=== PATIENT | male | born 1980 | race Caucasian/White ===

== ENCOUNTER 2017-03-23 02:13 | Emergency (ER) | payer BC ==
[~2017-03-23] VITALS: Ht 175.3 cm; Wt 86.2 kg
[~2017-03-23 02:13] MED LIST: CLON0.5T3 PO; LORA-405 PO
--- OUTSIDE RECORDS SUMMARY | 2017-03-23 02:20 | XMS REPORT | Continuity of Care Document ---
Author Author [employer] Organization [facility] Address Unknown Phone Unavailable Care Team Providers Care Coning Machine Operator Name Role Phone [employer] Unavailable Unavailable Problems Medications Allergies, Adverse Reactions, Alerts Immunizations Results Vital Signs Encounters Location Location Details Encounter Type Encounter Number Reason For Visit Attending Provider ADM Date DC Date Status Source OUTPATIENT [id number] XIOMY MARIA 03/07/20172016 Active [facility] OUTPATIENT [id number] XIOMY MARIA 03/21/2017 Active [facility] O Active [facility] Procedures Plan of Care Social History Assessment and Plan Family History Value Date Source Advance Directives Order Name Results Value Date Source
--- OUTSIDE RECORDS SUMMARY | 2017-03-23 02:20 | XMS REPORT | Clinical Summary ---
Author Author [facility] Organization [facility] Address Unknown Phone Unavailable Care Team Providers Care Hand Lacer Name Role Phone PCP Unavailable Source Comments Some departments are not documenting in the electronic medical record. If you do not see the information that you expected, contact Release of Information in the Health Information Management department at [phone] for further assistance in locating additional records.[facility] Allergies Active Allergy Reactions Severity Noted Date Comments Loratadine SEE COMMENTS High 08/21/2015 causes extreme mouth sores Mold UNKNOWN Low 08/21/2015 Tree [place] UNKNOWN Low 08/21/2015 Current Medications Prescription Sig. Disp. Refills Start End Date Status Date cyanocobalamin (VITAMIN Take 1,000 mcg by mouth Active B-12) 1,000 mcg tablet daily. folic acid 400 mcg tablet Take 400 mcg by mouth Active daily. baclofen (LIORESAL) 10 mg TAKE 1 TABLET BY MOUTH 90 Tab 5 12/09/19 Active tablet THREE TIMES DAILY 17 brivaracetam (BRIVIACT) Take 1 tablet by mouth 60 tablet 5 03/07/20 Active 50 mg tablet twice daily. 17 divalproex (DEPAKOTE ER) TAKE 1 TABLET BY MOUTH 30 tablet 0 03/17/20 Active 500 mg ER tablet EVERY NIGHT AT 17 BEDTIME*TAKE WITH 250MG TO MAKE TOTAL DOSE 750MG* divalproex ER (DEPAKOTE Take 1 tablet by mouth at 30 tablet 0 Active ER) 250 mg ER tablet bedtime daily. To be 17 taken with 500mg to equal 750mg QHS. pyridoxine (vitamin B6) Take 100 mg by mouth 03/07/20 Discontin (VITAMIN B-6) 100 mg daily. 17 ued tablet divalproex (DEPAKOTE ER) TAKE 1 TABLET BY MOUTH 30 tablet 0 02/15/20 03/17/20 Discontin 500 mg ER tablet EVERY NIGHT AT 17 17 ued BEDTIME*TAKE WITH 250MG TO MAKE TOTAL DOSE 750MG* divalproex ER (DEPAKOTE Take 1 tablet by mouth at 30 tablet 0 03/17/20 Discontin ER) 250 mg ER tablet bedtime daily. To be 17 17 ued taken with 500mg to equal 750mg QHS. Active Problems No known active problems Encounters Date Type Specialty Care Team Description 03/22/2017 Documentation Theodora Walden 03/21/2017 Hospital Radiology Arpan Kaye MD Arrived Encounter 03/21/2017 Hospital Arpan Kaye MD Encounter Holland Santos 03/17/2017 Refill Neurology Tim Bermudez DO 03/14/2017 Telephone Neurology Arpan Kaye MD Prior Authorization (Briviact) 03/07/2017 Office Visit Neurology Arpan Kaye MD Ataxia ( Primary Dx);Idiopathic generalized epilepsy, intractable (HCC);Weakness 03/07/2017 Procedure Pass Radiology 02/25/2017 Refill Neurology Tim Bermudez DO 02/13/2017 Refill Neurology Tim Bermudez DO from Last 3 Months Family History Medical History Relation Name Comments Ataxia Father Heart Attack Father Seizures Father unclear diagnosis Hypertension Maternal Grandfather Stroke Maternal Grandfather Dementia Maternal Grandmother Hypertension Other Cancer Paternal Grandfather Parkinson's Paternal Grandmother Migraines Neg Hx Tremor Neg Hx Relation Name Status Comments Father Maternal Grandfather Maternal Grandmother Mother Alive Other Paternal Grandfather Paternal Grandmother Social History Tobacco Use Types Packs/Day Years Used Date Never Smoker Smokeless Tobacco: Never Used Alcohol Use Drinks/Week oz/Week Comments No Sex Assigned at Date Recorded Not on file Last Filed Vital Signs Vital Sign Reading Time Taken Blood Pressure 123/83 03/07/2017 12:06 PM CDT Pulse 87 03/07/2017 12:06 PM CDT Temperature 36.7 C (98 F) 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 No evidence of acute or recent infarct or intracranial mass. 2. Small area of encephalomalacia involving the inferior right gyrus rectus at the olfactory groove. 3. Minimal supratentorial white matter disease of uncertain etiology or clinical significance. Approved by Ken Herman M.D. on 03/21/2017 2:38 PM By my electronic signature, I attest that I have personally reviewed the images for this examination and formulated the interpretations and opinions expressed in this report Finalized by Jaspal Adam M.D. on 03/21/2017 5:27 PM. Dictated by Ken Herman M.D. on 03/21/2017 1:35 PM. 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 TECHNIQUE: Multiplanar and multisequence MR imaging of the whole brain was performed. This was done both before and after the administration of gadolinium contrast. Additional dedicated MR sequences were obtained of the skullbase before and after the administration of gadolinium contrast. COMPARISON: None FINDINGS: The skullbase marrow signal is normal.Meckel's caves, cavernous sinuses, clivus and petrous apices are normal in appearance. The suprasellar, prepontine and cerebellopontine and cerebellomedullary cisterns are patent. No signal abnormality or mass lesion is identified along the expected course of the visualized cranial nerves. The ventricles and subarachnoid spaces are normal in size and configuration. A few scattered subcortical and deep frontal lobe white matter punctate FLAIR hyperintensities consistent with minimal nonspecific white matter disease. Focal encephalomalacia and gliosis involving the inferior aspect of the right gyrus rectus at the olfactory groove. Brain parenchyma is otherwise normal in signal. There is no focal mass or mass effect. There is no area of abnormal contrast enhancement. The vascular flow-voids are unremarkable. Diffusion weighted imaging is not indicative of infarct. 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 TECHNIQUE: Multiplanar and multisequence MR imaging of the whole brain was performed. This was done both before and after the administration of gadolinium contrast. Additional dedicated MR sequences were obtained of the skullbase before and after the administration of gadolinium contrast. COMPARISON: None FINDINGS: The skullbase marrow signal is normal. Meckel's caves, cavernous sinuses, clivus and petrous apices are normal in appearance. The suprasellar, prepontine and cerebellopontine and cerebellomedullary cisterns are patent. No signal abnormality or mass lesion is identified along the expected course of the visualized cranial nerves. The ventricles and subarachnoid spaces are normal in size and configuration. A few scattered subcortical and deep frontal lobe white matter punctate FLAIR hyperintensities consistent with minimal nonspecific white matter disease. Focal encephalomalacia and gliosis involving the inferior aspect of the right gyrus rectus at the olfactory groove. Brain parenchyma is otherwise normal in signal. There is no focal mass or mass effect. There is no area of abnormal contrast enhancement. The vascular flow-voids are unremarkable. Diffusion weighted imaging is not indicative of infarct. IMPRESSION 1. No evidence of acute or recent infarct or intracranial mass. 2. Small area of encephalomalacia involving the inferior right gyrus rectus at the olfactory groove. 3. Minimal supratentorial white matter disease of uncertain etiology or clinical significance. Approved by Ken Herman M.D. on 03/21/2017 2:38 PM By my electronic signature, I attest that I have personally reviewed the images for this examination and formulated the interpretations and opinions expressed in this report Finalized by Jaspal Adam M.D. on 03/21/2017 5:27 PM. Dictated by Ken Herman M.D. on 03/21/2017 1:35 PM. from Last 3 Months
--- OUTSIDE RECORDS SUMMARY | 2017-03-23 02:21 | XMS REPORT | Encounter Summary ---
Author Author [facility] Organization [facility] Address Unknown Phone Unavailable Care Team Providers Care Mangle Operator Garments Name Role Phone PCP Unavailable Encounter Details Date Type Department Care Team Description 03/07/2017 Procedure Pass [facility] Radiology [address] [place] [address] Social History Tobacco Use Types Packs/Day Years Used Date Never Smoker Smokeless Tobacco: Never Used Alcohol Use Drinks/Week oz/Week Comments No Sex Assigned at Date Recorded Not on file as of this encounter Plan of Treatment Not on fileas of this encounter Visit Diagnoses Not on filein this encounter
--- OUTSIDE RECORDS SUMMARY | 2017-03-23 02:21 | XMS REPORT | Encounter Summary ---
Author Author [facility] Organization [facility] Address Unknown Phone Unavailable Care Team Providers Care Territory Sales Manager Medical Name Role Phone PCP Unavailable Reason for Visit * Pain Authorization Status Reason Specialty Diagnoses / Referred By Referred To Procedures Contact Contact New Request Diagnoses Jenny Kaye MD [address] EMG ORDER [address] [place] [address] Encounter Details Date Type Department Care Team Description 03/21/2017 Hospital [facility] EEG Arpan Kaye MD Encounter [address] [place] [address] [address] [place] [address] [phone] Social History Tobacco Use Types Packs/Day Years Used Date Never Smoker Smokeless Tobacco: Never Used Alcohol Use Drinks/Week oz/Week Comments No Sex Assigned at Date Recorded Not on file as of this encounter Progress Notes * Raymundo Hall - 03/21/2017 9:19 AM CDT EEG completed without complications. in this encounter Procedure Notes * Zoila Woodard MD - 03/21/2017 11:38 AM CDT Procedure(s): EEG AWAKE & ASLEEP Pre-Procedure Diagnose(s): Seizures (HCC) AWAKE AND ASLEEP EEG REPORT Date of service: 03/21/2017 Name: Hay Ferreirarogers Date of : 1980 Start: 8:23 End: 9:12 Reffering: Dr. Kaye PATIENT HISTORY: This is a 36 y.o. male with an unclear epilepsy type and progressive ataxia. His previous EEG would suggest an underlying generalized epilepsy Meds: Depacon, Briviact TECHNICAL: This EEG is performed in the awake and asleep states. The EEG is performed on a 32 channel digital recording device. The 10-20 international system of electrode placement is used with additional FT9 and FT10 electrodes. REPORT: BACKGROUND: The posterior dominant rhythm is 9 Hz. The heart rate is 68 bpm. SLEEP: As the patient enters drowsiness there is an attenuation of background rhythms. Stage II sleep is seen, vertex waves and sleep spindles were present Hyperventilation was performed and produced no changes. Photic stimulation was performed and triggered intermittent generalized polyspike and wave epileptiform discharges as well as bilateral photic driving. ABNORMALITIES: Epileptiform activity is seen, noted intermittent generalized, frontal predominant 3 HZ polyspike and wave epileptiform discharges with shifting side predominance IMPRESSION This abnormal EEG is indicative of idiopathic generalized epilepsy. No seizures are seen. Seen and discussed with Dr. Vance Woo MD Neurophysiology fellow, [facility] I have personally reviewed the study and formulated the above-mentioned opinions and interpretations in this study. 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
--- OUTSIDE RECORDS SUMMARY | 2017-03-23 02:21 | XMS REPORT | Continuity of Care Document ---
Author Author [facility] Organization [facility] Address Unknown Phone Unavailable Allergies Active Description Code Type Severity Reaction Onset Reported/Identified Relationship to Patient Clinical Status Yes TRAVST-D TRAVST-D Moderate ALLERGIES TO MO 12/31/2010 Medications Problems Date Dx Coded Attending Type Code Diagnosis Diagnosed By 11/07/2009 Ot 845.00 11/07/2009 Ot 959.7 11/07/2009 Ot E000.0 11/07/2009 Ot E030 11/07/2009 Ot E849.6 11/07/2009 Ot E927.0 12/31/2010 Ot 822.0 12/31/2010 Ot 959.7 12/31/2010 Ot E000.8 12/31/2010 Ot E849.0 12/31/2010 Ot E888.1 11/09/2014 Ot 719.46 11/09/2014 Ot V15.88 11/09/2014 REGINE SEALS, ARMAND A Ot 801.00 11/09/2014 REGINE SEALS, ARMAND A Ot 873.0 11/09/2014 REGINE SEALS, ARMAND A Ot E000.0 11/09/2014 REGINE SEALS, ARMAND A Ot E849.6 11/09/2014 REGINE SEALS, ARMAND A Ot E885.9 11/09/2014 REGINE SEALS, ARMAND A Ot V06.1 11/15/2014 TAURUS SEALS, ALYSON Aguero Ot V58.32 12/13/2015 CHELA MCKEON DO Ot G40.909 EPILEPSY, UNSP, NOT INTRACTABLE, WITHOUT 12/13/2015 CHELA MCKEON DO Ot S00.11XA CONTUSION OF RIGHT EYELID AND PERIOCULAR 12/13/2015 CHELA MCKEON DO Ot W18.09XA STRIKING AGAINST OTH OBJECT W SUBSEQUENT 12/13/2015 CHELA MCKEON DO Ot Y92.013 BEDROOM OF SINGLE-FAMILY (PRIVATE) HOUSE 12/13/2015 CHELA MCKEON DO Ot Y99.8 OTHER EXTERNAL CAUSE STATUS 12/15/2015 CHELA MCKEON DO Ot G40.909 EPILEPSY, UNSP, NOT INTRACTABLE, WITHOUT 12/15/2015 CHELA MCKEON DO Ot S00.11XA CONTUSION OF RIGHT EYELID AND PERIOCULAR 12/15/2015 CHELA MCKEON DO Ot W18.09XA STRIKING AGAINST OTH OBJECT W SUBSEQUENT 12/15/2015 CHELA MCKEON DO Ot Y92.013 BEDROOM OF SINGLE-FAMILY (PRIVATE) HOUSE 12/15/2015 CHELA MCKEON DO Ot Y99.8 OTHER EXTERNAL CAUSE STATUS Procedures Results Encounters ACCT No. Visit Date/Time Discharge Status Pt. Type Provider Facility Loc./Unit Complaint [id number] 12/13/2015 18:15:00 2015 20:13:00 DIS Emergency CHELA MCKEON DO [facility] ER [id number] 08/15/2015 08:03:00 2015 23:59:59 CLS Outpatient OTILIA SEALS, NITISH Ochoa [facility] RT [id number] 11/15/2014 11:03:00 2014 11:21:00 DIS Emergency ALYSON CONDON MD [facility] ER [id number] 11/09/2014 02:00:00 2014 03:20:00 DIS Emergency ARMAND WEINER MD [facility] ER [id number] 01/19/2012 09:08:00 Document Registration [id number] 12/31/2010 19:31:00 Document Registration [id number] 11/07/2009 03:56:00 Document Registration
--- OUTSIDE RECORDS SUMMARY | 2017-03-23 02:21 | XMS REPORT | Encounter Summary ---
Author Author [facility] Address Unknown Phone Unavailable Care Team Providers Care Sap Hana Developer Name Role Phone PCP Unavailable Reason for Visit * Reason Comments Prior Authorization B[facility]act Encounter Details Date Type Department Care Team Description 03/14/2017 Telephone [facility] Arpan Kaye MD Prior Authorization [facility] Neurology [address] [facility] (Briviact) [address] [place] [address] [place] [address] [phone] Social History Tobacco Use Types Packs/Day Years Used Date Never Smoker Smokeless Tobacco: Never Used Alcohol Use Drinks/Week oz/Week Comments No Sex Assigned at Date Recorded Not on file as of this encounter Miscellaneous Notes * Telephone Encounter - Tamiko Bartlett LPN - 03/22/2017 10:56 AM CDT Per patient's patient is not seizure-free on depakote. Briviact copay card will only reduce the cost by $100. Discussed with about patient assistance program through [facility]. Based on income provided in a 3-person household, patient should qualify for the program. Spoke with Theodora with medication assistance. She will start paperwork and contact patient. * Telephone Encounter - Tamiko Bartlett LPN - 03/18/2017 1:34 PM CDT Patient's states she spoke with their insurance company. They informed her that their copay for the briviact would be $1110. She states it is excluded completely from their plan. Dr. Kaye, does patient have any other medication options? * Telephone Encounter - Dunia Kim RN - 03/15/2017 8:46 AM CDT Called Darrell to confirm if a PA was needed, no Rx on file for Briviact. Completed PA on [employer]. Per for[MD[email or web address], "A Prior Authorization is not applicable for this patient/medication. No further PA action needed." Waiting for pt's to return MANUEL Morrison's call for more clarifying information. * Telephone Encounter - Tamiko Bartlett LPN - 03/15/2017 8:31 AM CDT Patient's LVM on 03/11 stating that patient's insurance will not cover the new medication Dr. Kaye prescribed at last appt- brivaracetam. She stated there was another medication option they were provided with that insurance would cover. Medication name was not understandable on message. Return voicemail left for patient's requesting more information. in this encounter Plan of Treatment Not on fileas of this encounter Visit Diagnoses Not on filein this encounter
--- OUTSIDE RECORDS SUMMARY | 2017-03-23 02:21 | XMS REPORT | Encounter Summary ---
Author Author [facility] Organization [facility] Address Unknown Phone Unavailable Care Team Providers Care House Cleaner Name Role Phone PCP Unavailable Encounter Details Date Type Department Care Team Description 03/22/2017 Documentation [facility] Theodora Walden [address] [facility] [place] [address] Social History Tobacco Use Types Packs/Day Years Used Date Never Smoker Smokeless Tobacco: Never Used Alcohol Use Drinks/Week oz/Week Comments No Sex Assigned at Date Recorded Not on file as of this encounter Progress Notes * Theodora Walden - 03/22/2017 12:21 PM CDT A Medication Assistance Packet was mailed out to this patient. Once completed and returned by the patient, assistance paperwork will be done and sent to the physician prescribing the medications. Theodora Walden Medication Watcher [facility] [phone] in this encounter Plan of Treatment Not on fileas of this encounter Visit Diagnoses Not on filein this encounter
--- OUTSIDE RECORDS SUMMARY | 2017-03-23 02:21 | XMS REPORT | Encounter Summary ---
Author Author [facility] Organization [facility] Address Unknown Phone Unavailable Care Team Providers Care Shoe Stamper Name Role Phone PCP Unavailable Reason for Visit * Reason Comments Medication Refill Encounter Details Date Type Department Care Team Description 03/17/2017 Refill [facility] Neu[facility] [address] [place] [address] [place] [address] [phone] Social History Tobacco Use Types Packs/Day Years Used Date Never Smoker Smokeless Tobacco: Never Used Alcohol Use Drinks/Week oz/Week Comments No Sex Assigned at Date Recorded Not on file as of this encounter Plan of Treatment Not on fileas of this encounter Visit Diagnoses Not on filein this encounter
--- OUTSIDE RECORDS SUMMARY | 2017-03-23 02:21 | XMS REPORT | Encounter Summary ---
Author Author [facility] Organization [facility] Address Unknown Phone Unavailable Care Team Providers Care Tan Room Supervisor Name Role Phone PCP Unavailable Reason for Referral * Radiology Services Status Reason Specialty Diagnoses / Referred By Referred To Procedures Contact Contact Authorized Radiology Diagnoses Mansi Kaye Mri Ataxia MD Arpan [address] [place] MRI [address] [address] [address] [place], [place] Phone: [phone] Phone: * Radiology Services Status Reason Specialty Diagnoses / Referred By Referred To Procedures Contact Contact Authorized Radiology Diagnoses Mansi Kaye Mri Ataxia MD Arpan [address] [place], [place] MRI [address] [address] [place] Phone: [phone] Phone: Reason for Visit * Radiology Services Status Reason Specialty Diagnoses / Referred By Referred To Procedures Contact Contact Authorized Radiology Diagnoses Mansi Kaye Mri Ataxia MD Arpan [address] [place], [place] MRI [address] [address] [address] Phone: [phone] Phone: Encounter Details Date Type Department Care Team Description 03/21/2017 Hospital [facility] Arpan Kaye MD Arrived Encounter [facility] Radiology [address] [facility] [address] [facility] [address] [place] [address] [place] [address] [phone] Social History Tobacco Use Types Packs/Day Years Used Date Never Smoker Smokeless Tobacco: Never Used Alcohol Use Drinks/Week oz/Week Comments No Sex Assigned at Date Recorded Not on file as of this encounter Plan of Treatment Not on fileas of this encounter Results * MRI HEAD WO CONTRAST (03/21/2017 [...] Ken Herman M.D. on 03/21/2017 1:35 PM. in this encounter Visit Diagnoses Diagnosis Ataxia Lack of coordination in this encounter
--- OUTSIDE RECORDS SUMMARY | 2017-03-23 02:21 | XMS REPORT | Encounter Summary ---
Author Author [facility] Organization [facility] Address Unknown Phone Unavailable Care Team Providers Care Administrative Library Assistant Name Role Phone PCP Unavailable Reason for Visit * Reason Comments Medication Refill Encounter Details Date Type Department Care Team Description 02/25/2017 Refill [facility] [address] [place] [address] [place] [address] [phone] Social History Tobacco Use Types Packs/Day Years Used Date Never Smoker Smokeless Tobacco: Never Used Alcohol Use Drinks/Week oz/Week Comments No Sex Assigned at Date Recorded Not on file as of this encounter Plan of Treatment Not on fileas of this encounter Visit Diagnoses Not on filein this encounter
--- OUTSIDE RECORDS SUMMARY | 2017-03-23 02:21 | XMS REPORT | Encounter Summary ---
Author Author [facility] Organization [facility] Address Unknown Phone Unavailable Care Team Providers Care Rolling Mill Operator Name Role Phone PCP Unavailable Reason for Visit * Reason Comments Medication Refill Encounter Details Date Type Department Care Team Description 02/13/2017 Refill [facility] Neurology [address] [place] [address] [place] [address] [phone] Social History Tobacco Use Types Packs/Day Years Used Date Never Smoker Smokeless Tobacco: Never Used Alcohol Use Drinks/Week oz/Week Comments No Sex Assigned at Date Recorded Not on file as of this encounter Plan of Treatment Not on fileas of this encounter Visit Diagnoses Not on filein this encounter
--- OUTSIDE RECORDS SUMMARY | 2017-03-23 02:21 | XMS REPORT | Encounter Summary ---
Author Author [facility] Organization [facility] Address Unknown Phone Unavailable Care Team Providers Care Analysis Engineer Name Role Phone PCP Unavailable Reason for Referral * Consult, Test & Treat Status Reason Specialty Diagnoses / Referred By Referred To Procedures Contact Contact New Request Specialty Neurology Diagnoses [facility] Services Idiopathic MD BRITTANIE Antony [id number] Required generalized [address] epilepsy, Blvd [place], [place] intractable [place] [id number] (HCC) [place], [place] Phone: [phone] Phone: * Radiology Services Status Reason Specialty Diagnoses / Referred By Referred To Procedures Contact Contact Authorized Radiology Diagnoses Mansi Kaye Mri Ataxia MD Arpan [address] [place] MRI HEAD [place] [id number] [address] [place], [place] Phone: [phone] Phone: * Pain Authorization Status Reason Specialty Diagnoses / Referred By Referred To Procedures Contact Contact New Request Diagnoses Jenny Kaye MD [address] rocedures [address]d EMG ORDER [place] [address] [place] [address] * Consult, Test & Treat Status Reason Specialty Diagnoses / Referred By Referred To Procedures Contact Contact No Auth Needed Specialty Neurology Diagnoses Taqueria Kaye [facility], Services Ataxia MD ARNEL Antony Required [address] [place], [place] [id number] [place], [place] Phone: [phone] Phone: Reason for Visit * Reason Comments Neurological Problem Delay in speech worsening, walking has improved Encounter Details Date Type Department Care Team Description 03/07/2017 Office Visit [facility] Arpan Kaye MD Ataxia ([facility] [address] Dx);Idiopathic [address] [place] [address] generalized epilepsy, [address] [place] [address] [place] [address] (HCC);Weakness [phone] Social History Tobacco Use Types Packs/Day Years Used Date Never Smoker Smokeless Tobacco: Never Used Alcohol Use Drinks/Week oz/Week Comments No Sex Assigned at Date Recorded Not on file as of this encounter Last Filed Vital Signs Vital Sign Reading Time Taken Blood Pressure 123/83 03/07/2017 12:06 PM CDT Pulse 87 03/07/2017 12:06 PM CDT Temperature - - Respiratory Rate - - Oxygen Saturation 100% 03/07/2017 12:06 PM CDT Inhaled Oxygen - - Concentration Weight 101.4 kg (223 lb 9.6 oz) 03/07/2017 12:06 PM CDT Height 182.9 cm (6' 0.01") 03/07/2017 12:06 PM CDT Body Mass Index 30.32 03/07/2017 12:06 PM CDT in this encounter Instructions * Patient Instructions - Arpan Kaye MD - 03/07/2017 12:30 PM CDT Brivaracetam titration schedule AM PM Weeks 1-2 0 50mg Week 3 50mg 50mg Divalproex titration schedule AM PM Week 4 0 500mg Week 5 0 250mg Week 6 0 0mg in this encounter Progress Notes * Dunia Kim, RN - 03/07/2017 12:30 PM CDT Discussed process with [facility] and potential financial responsibility. Also provided Brivact co-pay card and instructed pt to call if having any questions, issues, concerns with the medications. Verbalized understanding. * Arpan Kaye MD - 03/07/2017 12:30 PM CDT Formatting of this note may be different from the original. Subjective: History of Present Illness Hay Grossman is a 36 y.o. male. He is accompanied by his Donald. Of note, the history is difficult to obtain due to the patient and his having difficulty recalling information. History of present illness This all began in 2008. He can't tell me what a seizure is. He doesn't know if he has seizures. They tell me he can just fall. The first thing he notices when he falls is he gets scared. It happens when he bumps into something. He will then get startled and then he will fall. He cannot describe to me what this is like. His notices that his legs just give out. He just collapses. There is no clear pattern in the way that he does it. He doesn't try to catch himself. He can hit his head. He has lost consciousness from this before, but most often he doesn't. He just lays on the ground when he falls. He can roll over and then get himself up. He will then get up. Both of the legs, right>left can be weak. He then just continues what he is doing. He was placed on divalproex which has decreased the frequency of falls, but not made them go away. He has the falls on a weekly basis. Precipitating factors: Startle or being scared Previous AEDs: levetiracetam (lewis, but did work) Other history: I reviewed a note from Dr. Bermudez which is pertinent for initial evaluation for gait issues, falling, and weakness. She does note a MRI T spine which showed T11/12 degenerative changes. 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 He had been on levetiracetam previously with resolution of seizures, but worsening mood. She started divalproex after that. She did fill out disability forms for him. Of note, his father used to follow with Dr. Guevara. Epilepsy risk factors (including gestational/ history): The patient was the product of a normal spontaneous vaginal delivery of a full term . There is a history of three febrile seizures at 13 months due to an ear infection, but no clear [employer] infections. Development was normal and developmental milestones were up to par with age. He has fallen and hit his head 2-3 times with LOC. There are no other risk factors for epilepsy. PREVIOUS TESTS: 1. MRI brain (09/18/15) - mild white matter changes (report reviewed) 2. MRI c-spine (09/18/15) - C4/5 disc bulge without central canal stenosis ( report reviewed) 3. [facility] EEG (08/15/15) - 3-4 Hz spike and slow wave (report reviewed) 4. Labs (08/21/15) reviewed - normal SPEP, MMA, RPR, Lyme, MICHAEL, IFES, RF, SSA /SSB, HIV, PELON, A1c, and copper with mildly low B12 (359) Review of Systems The following systems were reviewed and were negative except as mentioned elsewhere: Constitutional: No fever/chills/sweat, weight loss, tiredness/fatigue, or poor appetite Eyes: No reduced vision or blurriness, double vision, or droopy eyelids ENT: No hearing loss, ringing in the ears, vertigo, or hoarseness Cardiovascular: No chest pain/angina or palpitations Respiratory: No shortness of breath or cough Gastrointestinal: No abdominal pain, nausea and/or vomiting, diarrhea, or constipation Genitourinary: No pain with urination, excessive urination, or incontinence Musculoskeletal: No back pain, neck pain, joint pain/redness/swelling, or myalgia Skin: No jaundice, rash, or change in sweating Hematologic/ Lymphatic: No anemia, easy bruising, bleeding, or enlarged lymph nodes Endocrine: No temperature intolerance, polyuria, or polydipsia Allergic/ Immunological: No severe allergic reaction Psychiatric: No depression or anxiety Objective: baclofen (LIORESAL) 10 mg tablet TAKE 1 TABLET BY MOUTH THREE TIMES DAILY cyanocobalamin (VITAMIN B-12) 1,000 mcg tablet Take 1,000 mcg by mouth daily. divalproex (DEPAKOTE ER) 500 mg ER tablet TAKE 1 TABLET BY MOUTH EVERY NIGHT AT BEDTIME*TAKE WITH 250MG TO MAKE TOTAL DOSE 750MG* divalproex ER (DEPAKOTE ER) 250 mg ER tablet Take 1 tablet by mouth at bedtime daily. To be taken with 500mg to equal 750mg QHS. folic acid 400 mcg tablet Take 400 mcg by mouth daily. pyridoxine (vitamin B6) (VITAMIN B-6) 100 mg tablet Take 100 mg by mouth daily. Vitals: 03/07/17 1206 BP: 123/83 Pulse: 87 SpO2: 100% Weight: 101.4 kg (223 lb 9.6 oz) Height: 182.9 cm (72.01") Body mass index is 30.32 kg/(m^2). Physical Exam The patient is pleasant and cooperative with the exam. He is not in acute distress. The head is normocephalic without evidence of previous trauma. He does have a male pattern bald spot that started in middle school. Oropharynx is clear. Lungs are clear to auscultation bilaterally. Cardiac exam reveals a regular rate and rhythm. Abdomen is soft with active bowel sounds. Pulses are preserved in all four extremities. Skin exhibits normal temperature and showed no rash. His 5th digits are short and curved bilaterally. Mental Status: The patient is attentive, alert, and oriented to person, time and place. Language comprehension, naming, concentration, and recent/remote memory are intact. Speech is fluent, but does have some stuttering. Cranial Nerves: Pupils are equal and reactive to light bilaterally. Visual mercado are intact to confrontation testing. There is no papilledema. Extraocular movements that are probably intact without nystagmus, although he doesn't seem to bury his eyes with lateral eye movement. Facial sensation and strength are normal. Hearing is intact to finger rub. Tongue and uvular are in the midline. Shoulder shrug is normal bilaterally. Motor: Muscle bulk is normal. There is normal tone. Motor power is as follows: Left Right Deltoids 5 5 Biceps 5 5 Triceps 5 5 Wrist extensors 5 5 Nitriles Lab Technician 5 5 Iliopsoas 5- 5- Quads 5 5 Hamstrings 5 5 Gastrocnemius 5 5 Tibialis anterior 5 5 There is no pronator drift or fixation. Tendon reflexes are 2+ diffusely except for 3+ with the left brachioradialis and in the bilateral patella with crossed adductors. Babinski maneuver elicits extensor response bilaterally. Sensory: Sensation is intact to pinprick, vibration, and light touch. Cerebellar: Finger to nose test shows no dysmetria. Rapid alternating movements are normal. Romberg is normal. Pull test was notable for an almost fall, but he was able to grab the door jam and I held him up as well. There is no abnormal movement. Gait: Normal stance, arms out for balance, and decreased stride length. Patient is able to heel, but not toe or andem walk. No gross ataxia is noted, but he does seem unstable. Assessment and Plan: CLINICAL SUMMARY Mr. Grossman is a pleasant 36 year old man with an unclear epilepsy type and progressive ataxia. His previous EEG would suggest an underlying generalized epilepsy, but there is essentially no clinical history obtained today as neither of them can provide an accurate description of any potential seizures. The associated ataxia, upper motor neuron signs, early male pattern baldness, perhaps unusual bilateral 5th digits, and his father with a similar unclear diagnosis does raise the possibility of a genetic etiology. I would like him to see one of our movement disorder people for guidance as to genetic testing. Since it seems to possibly through his father, mitochondrial seems less likely. He would likely benefit from gait training so I would order this, but he would like to defer due to cost. I will also send for a new MRI. As for his undefined epilepsy, I will send for an EEG to characterize his brain waves. Since he was free of these with levetiracetam, I will trial brivaracetam. Once on a dose of 50mg 2x daily, I will taper off the divalproex by 250mg per week. EPILEPSY CLASSIFICATION Epileptogenic zone: Generalized Epileptic Seizures: Myoclonic seizure (?) or atonic seizure (?) Etiology: Unknown Related Medical Conditions: Father with unknown epilepsy and progressive gait disorder MANAGEMENT AND PLAN During the visit I discussed my impression, recommended diagnostic studies, prognosis, risks and benefits of management, instructions for management, and importance of compliance. After a discussion, the patient agrees with the plan. Total time for discussion was 70 minutes. I spent 60 minutes counseling the patient on matters pertaining to unknown epilepsy and progressive gait disorder. Visit start time: 12:10 Visit end time: 13:30 RECOMMENDATIONS 1. Movement disorders consultation to help guide genetic testing 2. EMG on the same day with Dr. Fritz 3. MRI brain 4. One hour EEG 5. Consider gait training in the future The patient is instructed not to drive unless 6 months free of alteration of consciousness, not to work in close proximity of machines with moving parts, not to swim unsupervised or to work at high places. The patient is to shower ( without accumulation of water) instead of taking a bath if unsupervised. FOCUSED HEALTH MAINTENANCE: Smoking cessation counseling: Non-smoker Discussed patient's BMI with him. The body mass index is 30.32 kg/(m^2). and falls within the category of Obesity 1 (30 to <35); Specialist visit only - will refer back to primary doctor for further care. FOLLOWUP PLAN I plan to see the patient back for follow-up in approximately 6 months. The patient is instructed to contact us if there is an exacerbation of the seizures or any side effects from the antiepileptic medications. in this encounter Plan of Treatment Name Priority Associated Diagnoses Order Schedule AMB REFERRAL TO NEUROLOGY Routine Ataxia Ordered: 03/07/2017 AMB REFERRAL FOR EEG Routine Idiopathic generalized Ordered: 03/07/2017 epilepsy, intractable (HCC) as of this encounter Results * MRI HEAD [...] in this encounter Visit Diagnoses Diagnosis Ataxia - Primary Lack of coordination Idiopathic generalized epilepsy, intractable (HCC) Unspecified epilepsy with intractable epilepsy Weakness Other malaise and fatigue in this encounter
[2017-03-23 02:31] VITALS: BP 128/88
--- NOTE | 2017-03-23 02:41 | ED Chest Pain ---
General Chief Complaint: Chest Pain Stated Complaint: CP,LOWER BACK PAIN Source: patient, family (mom) Exam Limitations: no limitations History of Present Illness Time seen by provider: 02:26 Initial Comments Patient presents to ER by private conveyance with his mother with a chief complaint that at approximately 0 140 this morning he was at work at [employer] and began to feel some sweats come on as well as feel a little lightheaded and a coworker said that he looked pale. He then began to experience some soreness in his chest that has gotten better since arriving at the ER. He has no cough or shortness of breath nor nausea, or numbness or tingling of his hands, arms, jaw, neck. He has no diarrhea, rash, fever, chills. About a week ago he was diagnosed with a spider bite on his right flank for which she was put on a steroid and doxycycline. He finished the steroid couple days ago. He feels that this is gotten a lot better and it does not hurt anymore. His primary care physician did not sophie the wound. He has no history of coronary disease, primary family coronary disease prior to age of 50, diabetes, blood pressure, thyroidism, smoking history. Allergies and Home Medications Allergies Uncoded Allergies: TRAVST-D (Allergy, Intermediate, ALLERGIES TO MOUTH, 12/31/10) Home Medications Lorazepam 1 Mg Tablet, 1 MG PO PRN, #10 Prescribed by: CHELA MCKEON on 12/13/151930 Review of Systems Constitutional: No chills, No diaphoresis, No fever, No malaise EENTM: No Blurred Vision, No Eye Pain Respiratory: Denies Cough, Denies Shortness of Air Cardiovascular: See HPI, Chest Pain (mid sternum), Denies Edema, Denies Irregular Heart Rate, Denies Lightheadedness, Denies Palpitations, Denies Syncope Gastrointestinal: Denies Abdomen Distended, Denies Abdominal Pain, Denies Constipated, Denies Diarrhea, Denies Nausea, Denies Poor Appetite, Denies Vomiting Genitourinary: Denies Burning, Denies Discharge Musculoskeletal: No back pain, No joint pain Skin: No pruritus, No rash Psychiatric/Neurological: Denies Headache, Denies Numbness Past Rgjemeb-Glavfi-Qhvoac Hx Patient Social History Alcohol Use: Denies Use Recreational Drug Use: No Smoking Status: Never a Smoker Recent Foreign Travel: No Contact w/Someone Who Travel: No Immunizations Up To Date Tetanus Booster (TDap): Less than 5yrs Seasonal Allergies Seasonal Allergies: No Surgeries Surgeries: Orthopedic Neurological Neurological Disorders: Seizure Disorder Blood Transfusions Adverse Reaction to a Blood Tr: No Physical Exam Vital Signs Vital Sign - Last 12Hours 03/23/17 02:18 Temp 97.8 Pulse 79 Resp 20 B/P (MAP) 130/89 Pulse Ox 94 O2 Delivery Room Air Capillary Refill : General Appearance: No Apparent Distress, WD/WN, Anxious HEENT: PERRL/EOMI, TMs Normal, Normal ENT Inspection, Pharynx Normal Neck: Full Range of Motion, Normal Inspection, Non Tender, Supple, Lymphadenopathy (L) (shotty anterior), Lymphadenopathy (R) (shotty) Respiratory: Chest Non Tender, Lungs Clear, Normal Breath Sounds, No Accessory Muscle Use, No Respiratory Distress Cardiovascular: Regular Rate, Rhythm, No Edema, No Gallop, No JVD, No Murmur, Normal Peripheral Pulses Gastrointestinal: Normal Bowel Sounds, No Organomegaly, No Pulsatile Mass, Non Tender, Soft Extremity: Normal Capillary Refill, No Pedal Edema Neurologic/Psychiatric: Alert, Oriented x3, Normal Mood/Affect Skin: Normal Color, Warm/Dry Lymphatic: No Adenopathy Progress/Results/Core Measures Results/Orders Lab Results Laboratory Tests Test 03/23/17 02:27 03/23/17 02:40 Range/Units White Blood Count 8.4 4.3-11.0 10^3/uL Red Blood Count 5.15 4.35-5.85 10^6/uL Hemoglobin 16.1 13.3-17.7 G/DL Hematocrit 47 40-54 % Mean Corpuscular Volume 92 80-99 FL Mean Corpuscular Hemoglobin 31 25-34 PG Mean Corpuscular Hemoglobin Concent 34 32-36 G/DL Red Cell Distribution Width 13.0 10.0-14.5 % Platelet Count 216 130-400 10^3/uL Mean Platelet Volume 11.0 H 7.4-10.4 FL Neutrophils (%) (Auto) 38 L 42-75 % Lymphocytes (%) (Auto) 49 H 12-44 % Monocytes (%) (Auto) 10 0-12 % Eosinophils (%) (Auto) 2 0-10 % Basophils (%) (Auto) 1 0-10 % Neutrophils # (Auto) 3.2 1.8-7.8 X 10^3 Lymphocytes # (Auto) 4.1 H 1.0-4.0 X 10^3 Monocytes # (Auto) 0.8 0.0-1.0 X 10^3 Eosinophils # (Auto) 0.2 0.0-0.3 10^3/uL Basophils # (Auto) 0.1 0.0-0.1 10^3/uL Sodium Level 141 135-145 MMOL/L Potassium Level 3.6 3.6-5.0 MMOL/L Chloride Level 102 98-107 MMOL/L Carbon Dioxide Level 27 21-32 MMOL/L Anion Gap 12 5-14 MMOL/L Blood Urea Nitrogen 18 7-18 MG/DL Creatinine 1.07 0.60-1.30 MG/DL Estimat Glomerular Filtration Rate > 60 BUN/Creatinine Ratio 17 Glucose Level 89 70-105 MG/DL Calcium Level 8.8 8.5-10.1 MG/DL Magnesium Level 2.2 1.8-2.4 MG/DL Total Bilirubin 0.8 0.1-1.0 MG/DL Aspartate Amino Transf (AST/SGOT) 37 H 5-34 U/L Alanine Aminotransferase (ALT/SGPT) 49 0-55 U/L Alkaline Phosphatase 51 40-136 U/L Troponin I < 0.30 <0.30 NG/ML C-Reactive Protein High Sensitivity 0.05 0.00-0.50 MG/DL Total Protein 7.2 6.4-8.2 GM/DL Albumin 3.8 3.2-4.5 GM/DL Urine Color YELLOW Urine Clarity CLEAR Urine pH 6 5-9 Urine Specific Stickney 1.020 1.016-1.022 Urine Protein NEGATIVE NEGATIVE Urine Glucose (UA) NEGATIVE NEGATIVE Urine Ketones NEGATIVE NEGATIVE Urine Nitrite NEGATIVE NEGATIVE Urine Bilirubin NEGATIVE NEGATIVE Urine Urobilinogen NORMAL NORMAL MG/DL Urine Leukocyte Esterase NEGATIVE NEGATIVE Urine RBC (Auto) NEGATIVE NEGATIVE Urine RBC NONE /HPF Urine WBC NONE /HPF Urine Squamous Epithelial Cells RARE /HPF Urine Crystals NONE /LPF Urine Bacteria NEGATIVE /HPF Urine Casts NONE /LPF Urine Mucus NEGATIVE /LPF Urine Culture Indicated NO Urine Opiates Screen NEGATIVE NEGATIVE Urine Oxycodone Screen NEGATIVE NEGATIVE Urine Methadone Screen NEGATIVE NEGATIVE Urine Propoxyphene Screen NEGATIVE NEGATIVE Urine Barbiturates Screen NEGATIVE NEGATIVE Ur Tricyclic Antidepressants Screen NEGATIVE NEGATIVE Urine Phencyclidine Screen NEGATIVE NEGATIVE Urine Amphetamines Screen NEGATIVE NEGATIVE Urine Methamphetamines Screen NEGATIVE NEGATIVE Urine Benzodiazepines Screen NEGATIVE NEGATIVE Urine Cocaine Screen NEGATIVE NEGATIVE Urine Cannabinoids Screen NEGATIVE NEGATIVE My Orders Orders - BIPIN SNOWDEN Cbc With Automated Diff (03/23/17 02:32) Comprehensive Metabolic Panel (03/23/17 02:32) Hs C Reactive Protein (03/23/17 02:32) Drug Screen Stat (Urine) (03/23/17 02:32) Magnesium (03/23/17 02:32) Troponin I (03/23/17 02:32) Ua Culture If Indicated (03/23/17 02:32) Chest Pa/Lat (2 View) (03/23/17 02:32) Ekg Tracing (03/23/17 02:32) Saline Lock/Iv-Start (03/23/17 02:32) Aspirin Chewable Tablet (Baby Aspirin Ch (03/23/17 02:45) Medications Given in ED Current Medications Medications Dose Ordered Sig/Emeli Route Start Time Stop Time Status Last Admin Dose Admin Aspirin 324 mg ONCE ONCE PO 03/23/17 02:45 03/23/17 02:46 DC 03/23/17 02:44 324 MG Vital Signs/I&O Vital Sign - Last 12Hours 03/23/17 03/23/17 02:18 02:18 Temp 97.8 Pulse 79 Resp 20 B/P (MAP) 130/89 Pulse Ox 94 O2 Delivery Room Air Room Air ECG Initial ECG Impression Date: Mar 23, 2017 Initial ECG Impression Time: 02:20 Initial ECG Rate: 72 Initial ECG Rhythm: Normal Sinus Initial ECG Intervals: NV (216 ms) Initial ECG Impression: Normal, 1st Degree AV Block Initial ECG Comparisson: No Previous ECG Available Comment No T-wave elevation or depression. Diagnostic Imaging Diagonstic Imaging: Xray Plain Films/CT/US/NM/MRI: chest Comments No acute cardiopulmonary process noted. Reviewed: Reviewed by Me Departure Impression Impression: Primary Impression: Chest pain Qualified Codes: R07.9 - Chest pain, unspecified Disposition: 01 HOME, SELF-CARE Condition: Stable Departure-Patient Inst. Decision time for Depature: 03:35 Referrals: NO,LOCAL PHYSICIAN (PCP) Primary Care Physician Patient Instructions: Chest Pain That Is Not Caused by the Heart (DC) Add. Discharge Instructions: Plan to follow up with your primary care physician in the next 1-2 weeks. If you begin to have worsening symptoms you may want to show up at your primary care physician sooner. If you start having intractable chest pain or nausea and vomiting or accompanied with shortness of breath than you should return to the ER for reevaluation. All discharge instructions reviewed with patient and/or family. Voiced understanding. Work/School Note: Work Release Form Date Seen in the Emergency Department: Mar 23, 2017 Return to Work: Mar 24, 2017 Restrictions: No Restrictions BIPIN SNOWDEN Mar 23, 2017 02:40
[2017-03-23 02:45] LABS: BASOPHILS # (AUTO) 0.1 10^3/uL (0.0-0.1); BASOPHILS % (AUTO) 1 % (0-10); EOSINOPHILS # (AUTO) 0.2 10^3/uL (0.0-0.3); EOSINOPHILS % (AUTO) 2 % (0-10); LYMPHOCYTES # (AUTO) 4.1 X 10^3 (1.0-4.0); LYMPHOCYTES % (AUTO) 49 % (12-44); MEAN CORPUSCULAR HEMOGLOBIN 31 PG (25-34); MEAN CORPUSCULAR HGB CONC 34 G/DL (32-36); MEAN CORPUSCULAR VOLUME 92 FL (80-99); MONOCYTES # (AUTO) 0.8 X 10^3 (0.0-1.0); MONOCYTES % (AUTO) 10 % (0-12); NEUTROPHILS # (AUTO) 3.2 X 10^3 (1.8-7.8); NEUTROPHILS % (AUTO) 38 % (42-75); PLATELET COUNT 216 10^3/uL (130-400); RED BLOOD COUNT 5.15 10^6/uL (4.35-5.85); WHITE BLOOD COUNT 8.4 10^3/uL (4.3-11.0)
[2017-03-23] MEDS ORDERED: ASPIRIN 81 MG CHEW (CHILDREN'S ASA) PO ONE (02:45)
[2017-03-23 02:53] LABS: BILIRUBIN,URINE NEGATIVE (NEGATIVE); KETONES,URINE NEGATIVE (NEGATIVE); LEUKOCYTE ESTERASE ,URINE NEGATIVE (NEGATIVE); NITRITE,URINE NEGATIVE (NEGATIVE); PH,URINE 6 (5-9); PROTEIN,URINE NEGATIVE (NEGATIVE); UROBILINOGEN,URINE NORMAL (NORMAL)
[2017-03-23 02:58] LABS: ALANINE AMINOTRANSFERASE 49 U/L (0-55); ALBUMIN 3.8 GM/DL (3.2-4.5); ANION GAP 12 MMOL/L (5-14); ASPARTATE AMINO TRANSFERASE 37 U/L (5-34); BILIRUBIN,TOTAL 0.8 MG/DL (0.1-1.0); BLOOD UREA NITROGEN 18 MG/DL (7-18); BUN/CREATININE RATIO 17; CALCIUM 8.8 MG/DL (8.5-10.1); CARBON DIOXIDE 27 MMOL/L (21-32); CHLORIDE 102 MMOL/L (98-107); CREATININE SERUM 1.07 MG/DL (0.60-1.30); GFR ESTIMATED > 60; GLUCOSE 89 MG/DL (70-105); MAGNESIUM 2.2 MG/DL (1.8-2.4); POTASSIUM 3.6 MMOL/L (3.6-5.0); SODIUM 141 MMOL/L (135-145); TOTAL PROTEIN 7.2 GM/DL (6.4-8.2); hs C REACTIVE PROTEIN 0.05 MG/DL (0.00-0.50)
[2017-03-23 03:00] VITALS: BP 117/82
[2017-03-23 03:00] LABS: SQUAMOUS EPITHELIAL CELL,UR RARE /HPF
[2017-03-23 03:04] LABS: TROPONIN I < 0.30 NG/ML (<0.30)
[2017-03-23 03:15] VITALS: BP 113/83
[2017-03-23 03:30] VITALS: BP 115/72
[2017-03-23 03:44] VITALS: BP 115/72
--- NOTE | 2017-03-23 07:46 | Diagnostic Imaging Report ---
INDICATION: Chest pain. Comparison with 12/13/2015. FINDINGS: Examination of the chest in the PA and lateral projections fails to reveal evidence of active parenchymal pathology or pleural effusion. The cardiac silhouette is normal. IMPRESSION: Negative chest. No significant change since previous exam. Dictated by: Dictated on workstation # [id number]
== END 2017-03-23 03:44 | disposition home or self-care (01) ==
LOC: EDUNIT# 02:13 → ER 02:16
DX: R07.9 Chest pain, unspecified (principal); G40.909 Epilepsy, unspecified, not intractable, without status epilepticus
CPT/HCPCS: 36415; 71020; 80053; 80306; 81000; 83735; 84484; 85025; 86141; 93005

== ENCOUNTER 2017-07-13 10:15 | Outpatient (RCR) | payer BC | END 2017-07-13 11:04 | disposition home or self-care (01) | PROVIDERS: ATTEND Psychiatry & Neurology Neurology | DX: R47.1 Dysarthria and anarthria (principal); E53.8 Deficiency of other specified B group vitamins; R29.898 Other symptoms and signs involving the musculoskeletal system ==

== ENCOUNTER 2020-11-30 05:26 | Emergency (ER) | payer BC ==
[~2020-11-30] VITALS: Ht 180.3 cm; Wt 86.1 kg
--- NOTE | 2020-11-30 07:02 | Diagnostic Imaging Report ---
PROCEDURE: CT head without contrast. TECHNIQUE: Multiple contiguous axial images were obtained through the brain without the use of intravenous contrast. Auto Exposure Controls were utilized during the CT exam to meet ALARA standards for radiation dose reduction. INDICATION: Head injury. COMPARISON: CT head without contrast 12/13/2015. FINDINGS: No intracranial hemorrhage, mass effect, hydrocephalus or extra-axial fluid collections. No CT evidence of a territorial infarction. Osseous structures are intact. Visualized paranasal sinuses and mastoids are clear. IMPRESSION: No acute intracranial CT findings. Dictated by: Dictated on workstation # [id number]
[2020-11-30] MEDS ORDERED: LIDOCAINE 1% INJ 20 ML 20 ML VIAL INJ ONE (07:45)
--- NOTE | 2020-11-30 08:34 | ED Fall/Injury ---
General Chief Complaint: Trauma-Non Activation Stated Complaint: FALL/HEAD LAC Nursing Triage Note: PATIENT STATES THAT HE WAS WORKING AT [employer] [place], LOST HIS BALANCE AND FELL BACK, HITTING HIS HEAD ON A CABINET. DENIES LOC. Source: patient, family Exam Limitations: no limitations History of Present Illness Date Seen by Provider: Nov 30, 2020 Time Seen by Provider: 05:42 Initial Comments This 40-year-old gentleman presents to emergency room with injury to his posterior scalp after falling backward at work and striking his head. He was pulling a drawer or piece of equipment out of a [employer] machine when he lost balance and fell backward. He has history of ataxia and associated dysarthria. He denies any other injury. He has no pain or tenderness in the neck. There was no loss of consciousness. He denies signs or symptoms of concussion. Location Injury Occurred: [employer] Allergies and Home Medications Allergies Uncoded Allergies: TRAVST-D (Allergy, Intermediate, ALLERGIES TO MOUTH, 12/31/10) Home Medications Lorazepam 1 Mg Tablet, 1 MG PO PRN Prescribed by: CHELA MCKEON on 12/13/151930 Patient Home Medication List Home Medication List Reviewed: Yes Review of Systems Review of Systems Constitutional: no symptoms reported Eyes: No Symptoms Reported Ears, Nose, Mouth, Throat: no symptoms reported Respiratory: no symptoms reported Cardiovascular: no symptoms reported Gastrointestinal: no symptoms reported Genitourinary: no symptoms reported Musculoskeletal: see HPI Skin: see HPI Psychiatric/Neurological: See HPI Past Lvkmdyy-Tkepxm-Rdioyc Hx Past Med/Social Hx: Reviewed Nursing Past Med/Soc Hx Patient Social History Alcohol Use: Denies Use Smoking Status: Never a Smoker 2nd Hand Smoke Exposure: No Recent Infectious Disease Expo: No Recent Hopitalizations: No Immunizations Up To Date Tetanus Booster (TDap): Less than 5yrs Seasonal Allergies Seasonal Allergies: No Past Medical History Surgeries: Yes (LEFT KNEE MENISCUS REPAIR) Orthopedic Respiratory: No Cardiac: No Neurological: Yes (POOR BALANCE/FREQUENT FALLS; ATAXIA) Seizure Disorder Genitourinary: No Gastrointestinal: No Musculoskeletal: No Endocrine: No HEENT: No Cancer: No Psychosocial: Yes (MOOD DISORDER) Integumentary: No Blood Disorders: No Adverse Reaction/Blood Tranf: No Physical Exam Vital Signs Vital Signs - First Documented Capillary Refill : Less Than 3 Seconds Height, Weight, BMI Height: 5'9" Weight: 190lbs. oz. 86.735995fq; 26.00 BMI Method:Stated General Appearance: WD/WN, no apparent distress HEENT: PERRL/EOMI, other (1.5 cm flap laceration on the left posterior scalp.) Neck: non-tender, full range of motion, normal inspection Cardiovascular: regular rate, rhythm, no edema, no murmur Respiratory: chest non-tender, lungs clear, normal breath sounds, no respiratory distress Gastrointestinal: non tender; No distended Extremities: normal inspection; No swelling Neurologic/Psychiatric: no motor/sensory deficits, alert, normal mood/affect, oriented x 3 Skin: normal color, warm/dry Susie Coma Score Best Eye Response: (4) Open Spontaneously Best Verbal Response: (5) Oriented Best Motor Response: (6) Obeys Commands Lindsay Total: 15 Procedures/Interventions Wound Location: Scalp Wound Length (cm): 1.5 Wound's Depth, Shape: irregular, flap, sub Q Wound Explored: clean Irrigated w/ Saline (ccs): 200 Betadine Prep?: Yes Anesthesia: 1% Lidocaine Volume Anesthetic (ccs): 2 Number of Sutures: 2 Layer Closure?: 1 Number Deep Layer Sutures: 0 Sterile Dressing Applied?: No Progress/Results/Core Measures Results/Orders My Orders Orders - ALYSON CONDON MD Lidocaine 1% Inj 20 Ml (Xylocaine 1% Inj (11/30/20 07:45) Vital Signs/I&O 11/30/20 11/30/20 11/30/20 05:37 05:37 08:57 Temp 36.7 36.7 36.7 Pulse 84 84 84 Resp 22 22 22 B/P (MAP) 128/87 (101) 128/87 (101) 128/87 (101) Pulse Ox 96 96 96 O2 Delivery Room Air Room Air Blood Pressure Mean: 101 Progress Progress Note : Progress Note Patient did not require any pain medication or tetanus immunization. CT of the head was unremarkable. Wound was cleaned and approximated with suture. Diagnostic Imaging Diagonstic Imaging: CT Plain Films/CT/US/NM/MRI: head Comments NAME: [facility] REC#: [id number] PT STATUS: DEP ER : 1980 PHYSICIAN: CHELA MCKEON DO ADMIT DATE: 11/30/20/ER Signed Date of Exam:11/30/20 CT HEAD WO PROCEDURE: CT head without contrast. TECHNIQUE: Multiple contiguous axial images were obtained through the brain without the use of intravenous contrast. Auto Exposure Controls were utilized during the CT exam to meet ALARA standards for radiation dose reduction. INDICATION: Head injury. COMPARISON: CT head without contrast 12/13/2015. FINDINGS: No intracranial hemorrhage, mass effect, hydrocephalus or extra-axial fluid collections. No CT evidence of a territorial infarction. Osseous structures are intact. Visualized paranasal sinuses and mastoids are clear. IMPRESSION: No acute intracranial CT findings. Dictated by: Dictated on workstation # [id number] Dict: 11/30/20 0650 Trans: 11/30/20 1038 VERA [id number] Interpreted by: GIO COTTON MD Electronically signed by: GIO COTTON MD 11/30/20 1038 Departure Impression Primary Impression: Fall on same level Qualified Codes: W18.30XA - Fall on same level, unspecified, initial encounter Additional Impression: Laceration of scalp Qualified Codes: S01.01XA - Laceration without foreign body of scalp, initial encounter Disposition: HOME, SELF-CARE Condition: Improved Departure-Patient Inst. Decision time for Depature: 08:30 Referrals: ROSEMARY HERNANDEZ MD (PCP/Family) Primary Care Physician Patient Instructions: Closed Head Injury, Laceration Repair With Stitches (DC) Add. Discharge Instructions: Monitor your wound for signs of infection such as increasing redness, increasing swelling, puslike drainage, or fever. Return to care promptly if you notice the symptoms. Have your sutures removed in approximately a week. Contact occupational health on Tuesday for instructions on suture removal. Acetaminophen and/or ibuprofen may be used for pain. Keep the wound clean and dry except for normal showering. You may resume normal showering tonight, but be careful not to scrub directly over the sutures. Do not submerge until after sutures are removed. If you develop symptoms of concussion such as confusion, changes in vision, irritability, nausea, etc., please return to care for further evaluation. Call with questions or concerns. Return to care if you have any other significant concerns or worsening of condi tion. All discharge instructions reviewed with patient and/or family. Voiced understanding. ALYSON CONDON MD Nov 30, 2020 08:34
[2020-11-30 08:57] VITALS: BP 128/87
== END 2020-11-30 08:57 | disposition home or self-care (01) ==
LOC: EDUNIT# 05:26 → ER 05:31
DX: S01.01XA Laceration without foreign body of scalp, initial encounter (principal); W01.198A Fall on same level from slipping, tripping and stumbling with subsequent striking against other object, initial encounter
CPT/HCPCS: 12031; 70450

== ENCOUNTER 2020-12-08 10:35 | Emergency (ER) | payer BC ==
[~2020-12-08] VITALS: Ht 182 cm; Wt 90.0 kg
[2020-12-08 10:55] VITALS: BP 125/82
== END 2020-12-08 11:04 | disposition home or self-care (01) ==
LOC: EDUNIT# 10:35 → ER 10:42
DX: Z48.02 Encounter for removal of sutures (principal)

== ENCOUNTER 2022-12-17 12:00 | Emergency (ER) | payer BC ==
[~2022-12-17] VITALS: Ht 180 cm; Wt 100.0 kg
[2022-12-17 12:00] VITALS: BP 133/64
--- NOTE | 2022-12-17 12:38 | ED Fall/Injury ---
General Chief Complaint: Trauma-Non Activation Stated Complaint: FALL Nursing Triage Note: PT ARRIVED PER EMS, PT LOST HIS BALANCE AT HOME HIT BACK OF HEAD. HAS LAC APPROX 5CM. PT WAS AT [facility] AND HAD SYNCOPAL EPISODE AND WAS SENT TO ED. PT HAS SL IN PLACE IN L AC BY EMS. NS INFUSING. PT IS AWAKE AND ALERT AT THIS X. PT HAS KNOWN SLURRED SLOW SPEECH AND POOR BALANCE Source: patient Exam Limitations: no limitations History of Present Illness Date Seen by Provider: Dec 17, 2022 Time Seen by Provider: 12:18 Initial Comments Here by EMS after having a syncopal episode at [facility]. Apparently he lost his balance at home at about 1030 this morning and fell back and hit his head on the shelf or doorjamb. He did not lose consciousness. He subsequently walked to [facility] to have the laceration looked at. While there, he was getting local anesthesia via injection and passed out. They were very concerned and called EMS and brought him here. EMS reports that the patient did have slightly low blood pressure and they did start IV and initiated fluids. He has subsequently been better. Patient does have history of ataxia and speech difficulty which are not new. He is able to type out his information and answer to questions. He denies persistent or worsening headache or neck pain. Denies nausea or vomiting. States he feels better now. He is not concerned about significant other injury. He lives with other people and has people to watch over him. Wound is still open but anesthetized currently and is approximately 6 cm vertically oriented in the posterior midline scalp. Occurred: this morning Severity: mild Injuries/Pain Location: head Context: lost balance Loss of Consciousness: no loss of consciousness Associated Symptoms (Fall): No Chest Pain, No Confusion, No Muscle Spasms, No Nausea/Vomiting, No Neck Pain, No Trouble Walking Allergies and Home Medications Allergies Uncoded Allergies: TRAVST-D (Allergy, Intermediate, ALLERGIES TO MOUTH, 12/31/10) Patient Home Medication List Home Medication List Reviewed: Yes Lorazepam (Ativan) 1 Mg Tablet, 1 MG PO PRN Prescribed by: CHELA MCKEON on 12/13/151930 Review of Systems Review of Systems Constitutional: see HPI Eyes: No Symptoms Reported Ears, Nose, Mouth, Throat: no symptoms reported Respiratory: No cough, No short of breath Cardiovascular: syncope (During intradomal administration of local anesthesia to the scalp) Gastrointestinal: No nausea, No vomiting Psychiatric/Neurological: See HPI Past Nnvqakt-Zxxzoy-Nardzh Hx Patient Social History Tobacco Use?: No Substance use?: No Alcohol Use?: No Pt feels they are or have been: No Immunizations Up To Date Tetanus Booster (TDap): Less than 5yrs Seasonal Allergies Seasonal Allergies: No Past Medical History Surgery/Hospitalization HX: EPILESY, ATTAXIA Surgeries: Yes (LEFT KNEE MENISCUS REPAIR) Orthopedic Respiratory: No Cardiac: No Neurological: Yes (POOR BALANCE/FREQUENT FALLS; ATAXIA) Seizure Disorder Genitourinary: No Gastrointestinal: No Musculoskeletal: No Endocrine: No HEENT: No Cancer: No Psychosocial: Yes (MOOD DISORDER) Integumentary: No Blood Disorders: No Adverse Reaction/Blood Tranf: No Family Medical History Reviewed Nursing Family Hx Physical Exam Vital Signs Vital Signs - First Documented 12/17/22 12:00 Temp 36.8 Pulse 67 Resp 16 B/P (MAP) 133/64 (87) Pulse Ox 96 Capillary Refill : Height, Weight, BMI Height: 5'9" Weight: 190lbs. oz. 86.654269no; 30.00 BMI Method:Estimated General Appearance: WD/WN, no apparent distress HEENT: PERRL/EOMI, pharynx normal Neck: non-tender, full range of motion, supple, normal inspection Cardiovascular: regular rate, rhythm, no murmur Respiratory: lungs clear, normal breath sounds Extremities: normal range of motion Neurologic/Psychiatric: alert, normal mood/affect Skin: warm/dry, other (6 cm vertical laceration noted posterior scalp with bleeding controlled) Susie Coma Score Best Eye Response: (4) Open Spontaneously Best Verbal Response: (5) Oriented Best Motor Response: (6) Obeys Commands Procedures/Interventions Wound Location: Scalp Other Wound Location Posterior midline Wound Length (cm): 6 Wound's Depth, Shape: linear Wound Explored: contaminated Irrigated w/ Saline (ccs): 100 Betadine Prep?: Yes Staple Repair: Stapler 35W, Stapler Skin Precise Number of Sutures: 5 Layer Closure?: 1 Number Deep Layer Sutures: 0 Progress Wound was anesthetized in clinic. We were able to clean out course of water and then water irrigation. Closed with cali with good approximation. Small ribbon of antibiotic ointment applied after closure. Bleeding controlled. Tolerated procedure well with no complications. Progress/Results/Core Measures Results/Orders My Orders Orders - SARAH REARDON MD Dipht,Pertuss(Acell),Tet Adult (Boostrix (12/17/22 12:45) Medications Given in ED Current Medications Medications Dose Ordered Sig/Emeli Route Start Time Stop Time Status Last Admin Dose Admin Diphtheria/ Tetanus/Acell Pertussis 0.5 ml ONCE ONCE IM 12/17/22 12:45 12/17/22 12:46 DC 12/17/22 12:38 0.5 ML Vital Signs/I&O 12/17/22 12:00 Temp 36.8 Pulse 67 Resp 16 B/P (MAP) 133/64 (87) Pulse Ox 96 Blood Pressure Mean: 87 Progress Progress Note : Progress Note Seen and evaluated. No obvious other injuries other than the laceration noted on physical exam. No significant neck strain or pain or deformity. I did review with him about the possibility for imaging. Fall did not result in loss of consciousness and he was able to walk quite a bit afterwards to get to the clinic. Syncopal episode seems to be related to needlestick and not to head injury. We did consider CT of the head and we will forego that at this point. Wound closed with cali as anesthesia was still in effect. I did order tetanus update. We did discuss further evaluation including labs and other work-up and after discussion, both of us agree that that is not needed at this point. He does have family member at bedside who is able to take him home. Discharged home with return precautions. Patient verbalized understanding instructions and agreement with plan. Departure Impression Primary Impression: Laceration of scalp Qualified Codes: S01.01XA - Laceration without foreign body of scalp, initial encounter Additional Impression: Vasovagal syncope Disposition: HOME, SELF-CARE Condition: Improved Departure-Patient Inst. Decision time for Depature: 12:51 Referrals: ROSEMARY HERNANDEZ MD (PCP/Family) Primary Care Physician Patient Instructions: Laceration Repair With Cali ED, Vasovagal Response, Minor Head Injury (DC) Add. Discharge Instructions: All discharge instructions reviewed with patient and/or family. Voiced understanding. Continue home medications as previously prescribed. Return in 7 days for suture removal. You may use small ribbon of antibiotic ointment or cream over wound once or twice daily as needed. You may shower but do not soak wound otherwise in any body of water. You may cover with dressing as needed. Return for worse pain, worsening or increasing headache, vomiting greater than 3 times in 12 hours, vision or balance problems greater than normal, weakness or other concerns as needed. Follow-up with your doctor in a few days for recheck as needed. SARAH REARDON MD Dec 17, 2022 12:38
[2022-12-17] MEDS ORDERED: TETANUS,DIPTH,PERTUSS P/F (BOOSTRIX) 0.5 ML VIAL IM ONE (12:45)
== END 2022-12-17 13:03 | disposition home or self-care (01) ==
LOC: EDUNIT# 12:02 → ER 12:03
DX: S01.01XA Laceration without foreign body of scalp, initial encounter (principal); R55 Syncope and collapse; Z23 Encounter for immunization; W01.198A Fall on same level from slipping, tripping and stumbling with subsequent striking against other object, initial encounter; Y92.009 Unspecified place in unspecified non-institutional (private) residence as the place of occurrence of the external cause
CPT/HCPCS: 90715

== ENCOUNTER 2022-12-24 10:13 | Emergency (ER) | payer BC ==
[~2022-12-24] VITALS: Ht 180 cm; Wt 99.7 kg
[2022-12-24 10:28] VITALS: BP 125/87
== END 2022-12-24 10:28 | disposition home or self-care (01) ==
LOC: EDUNIT# 10:13 → ER 10:15
DX: Z48.02 Encounter for removal of sutures (principal)